=== PATIENT | male | born 1980 | race Two or more races ===

== ENCOUNTER 2021-01-27 09:31 | Emergency (ER) | payer MEDICAID ==
[~2021-01-27] VITALS: Ht 190.5 cm; Wt 204.1 kg
[2021-01-27 09:50] VITALS: BP 140/83
--- NOTE | 2021-01-27 09:54 | NUR ---
pt arrives to ER with complaints of right leg swelling. pt was sent from primary care physican to r/o DVT. pt states swelling intermittently over one year. pt states recent pain and discomfort with right lower extremity. pt denies any trauma or histor of DVT.
--- NOTE | 2021-01-27 10:00 | Emergency Room Report ---
History of Present Illness General Chief Complaint: Lower Extremity Injury Source: Patient Present Illness HPI Patient is a 40-year-old male presents for increased right-sided leg pain and swelling. Gradual onset of symptoms over the past several weeks. He contacted his physician who recommended he get evaluated for possible blood clots. Patient denies any prior history of blood clots in the past. Prior history of obesity. He additionally states that he has had sleep apnea and uses CPAP. Patient does not take any medications regularly. No vomiting or diarrhea. Denies any chest pain or shortness of breath. No prior history of thyroid disease. Allergies: Uncoded Allergies: PENICILLIN (Allergy, Unknown, 01/27/21) COVID-19 Screening Contact w/high risk pt: No Experienced COVID-19 symptoms?: No COVID-19 Testing performed [employer]: No COVID-19 Screening: Negative COVID-19 Patient History Past Medical History: see triage record Reviewed Nursing Documentation: PMH: Agreed; PSxH: Agreed Nursing Documentation-PMH Hx Cardiac Problems: No Hx Hypertension: No Hx Pacemaker: No Hx Asthma: No Hx COPD: No Hx Diabetes: No Hx Cancer: No Hx Gastrointestinal Problems: No Hx Dialysis: No History Of Psychiatric Problem: No Hx Neurological Problems: No Hx Cerebrovascular Accident: No Hx Seizures: No Review of Systems All Other Systems: negative except mentioned in HPI Physical Exam Vital Signs Date Time Temp Pulse Resp B/P (MAP) Pulse Ox O2 Delivery O2 Flow Rate FiO2 01/27/21 09:50 98.2 88 18 140/83 (102) 96 Room Air Sp02 EP Interpretation: reviewed, normal General Appearance: normal inspection, well appearing, alert, GCS 15, obese Head: atraumatic ENT: normal ENT inspection, hearing grossly normal, normal voice Neck: normal inspection, full range of motion, supple, no bony tend Respiratory: normal inspection, lungs clear, normal breath sounds, no respiratory distress, no retraction, no wheezing Cardiovascular #1: regular rate, rhythm, no edema Gastrointestinal: normal inspection, normal bowel sounds, non tender, soft, no guarding, no hernia Genitourinary: no CVA tenderness Musculoskeletal: normal inspection, back normal, normal range of motion Neurologic: alert, motor strength/tone normal, land classifier III-XII nml as tested, oriented x3, responsive, speech normal, normal inspection Psychiatric: normal inspection, judgement/insight normal, mood/affect normal Skin: other - Venous stasis skin changes and varicosities to the right lower extremity, trace edema Medical Decision Making Diagnostic Impression: Primary Impression: Dependent edema Additional Impression: Varicose veins of lower extremity ER Course Patient presents for right lower extremity swelling. Differential diagnosis include was not limited to cellulitis, venous stasis changes, DVT, congestive heart failure among others. Because of complexity of patient's case laboratory tests and imaging studies were ordered. Patient's laboratory testing was unremarkable. Patient was advised dietary modification and as well as continue use of compression stockings. Is advised to keep his legs elevated when at rest. Patient is duplex ultrasound of lower extremity showed no evidence of DVT. Patient's laboratory testing was unremarkable and he has adequate hemoglobin as well as normal thyroid test. Patient is advised to return if any worsening condition or if any changes in status that are concerning. This report is dictated with [employer] office services assistant software which may occasionally lead to discrepancies related to use of this software. Labs Test 01/27/21 11:20 White Blood Count 7.0 K/UL (4.8-10.8) Red Blood Count 5.13 M/UL (4.70-6.10) Hemoglobin 13.7 G/DL (14.2-18.0) Hematocrit 43.6 % (42.0-52.0) Mean Corpuscular Volume 85 FL (80-99) Mean Corpuscular Hemoglobin 26.7 PG (27.0-31.0) Mean Corpuscular Hemoglobin Concent 31.5 G/DL (32.0-36.0) Red Cell Distribution Width 15.0 % (11.6-14.8) Platelet Count 160 K/UL (150-450) Mean Platelet Volume 11.3 FL (6.5-10.1) Neutrophils (%) (Auto) 61.9 % (45.0-75.0) Lymphocytes (%) (Auto) 29.0 % (20.0-45.0) Monocytes (%) (Auto) 6.6 % (1.0-10.0) Eosinophils (%) (Auto) 1.7 % (0.0-3.0) Basophils (%) (Auto) 0.8 % (0.0-2.0) Sodium Level 143 MMOL/L (136-145) Potassium Level 4.1 MMOL/L (3.5-5.1) Chloride Level 107 MMOL/L (98-107) Carbon Dioxide Level 27 MMOL/L (21-32) Anion Gap 9 mmol/L (5-15) Blood Urea Nitrogen 19 mg/dL (7-18) Creatinine 0.9 MG/DL (0.55-1.30) Estimat Glomerular Filtration Rate > 60 mL/min (>60) Glucose Level 104 MG/DL (74-106) Calcium Level 9.0 MG/DL (8.5-10.1) Total Bilirubin 0.5 MG/DL (0.2-1.0) Aspartate Amino Transf (AST/SGOT) 18 U/L (15-37) Alanine Aminotransferase (ALT/SGPT) 50 U/L (12-78) Alkaline Phosphatase 75 U/L (46-116) Pro-B-Type Natriuretic Peptide 9 pg/mL (0-125) Total Protein 6.9 G/DL (6.4-8.2) Albumin 3.1 G/DL (3.4-5.0) Globulin 3.8 g/dL Albumin/Globulin Ratio 0.8 (1.0-2.7) Thyroid Stimulating Hormone (TSH) 2.659 uiU/mL (0.358-3.740) Last Vital Signs Date Time Temp Pulse Resp B/P (MAP) Pulse Ox O2 Delivery O2 Flow Rate FiO2 01/27/21 09:50 98.2 88 18 140/83 (102) 96 Room Air Status: improved Disposition: HOME, SELF-CARE Condition: Stable Referrals: [facility],REFERR[facility] (PCP) Armando Prado MD Jan 27, 2021 10:00
[2021-01-27 11:31] LABS: BASOPHILS % (AUTO) 0.8 % (0.0-2.0); EOSINOPHILS % (AUTO) 1.7 % (0.0-3.0); HEMATOCRIT 43.6 % (42.0-52.0); HEMOGLOBIN 13.7 G/DL (14.2-18.0); MEAN CORPUSCULAR VOLUME 85 FL (80-99); MONOCYTES % (AUTO) 6.6 % (1.0-10.0); NEUTROPHILS % (AUTO) 61.9 % (45.0-75.0); PLATELET COUNT 160 K/UL (150-450); RED BLOOD COUNT 5.13 M/UL (4.70-6.10)
[2021-01-27 11:38] LABS: ANION GAP 9 mmol/L (5-15); BLOOD UREA NITROGEN 19 mg/dL (7-18); CARBON DIOXIDE 27 MMOL/L (21-32); CHLORIDE 107 MMOL/L (98-107); CREATININE 0.9 MG/DL (0.55-1.30); POTASSIUM 4.1 MMOL/L (3.5-5.1); SODIUM 143 MMOL/L (136-145)
[2021-01-27 11:53] LABS: ALANINE AMINOTRANSFERASE 50 U/L (12-78); ALBUMIN 3.1 G/DL (3.4-5.0); ALBUMIN/GLOBULIN RATIO 0.8 (1.0-2.7); ALKALINE PHOSPHATASE 75 U/L (46-116); ASPARTATE AMINO TRANSFERASE 18 U/L (15-37); BILIRUBIN,TOTAL 0.5 MG/DL (0.2-1.0)
--- NOTE | 2021-01-27 17:32 | Diagnostic Imaging Report ---
Indication: Increased right-sided leg pain and swelling Technique: Grayscale and duplex images of the right lower extremity veins Comparison: In Findings: On the right, grayscale and duplex images demonstrate no evidence of intraluminal thrombus. Normal phasic Doppler waveforms, demonstrating normal augmentation response and no evidence of valvular insufficiency. Greater saphenous vein(s) and tibial veins are patent. Normal compressibility. The left common femoral vein was also imaged and is patent Impression: Negative for evidence of lower extremity deep venous thrombosis on the right
== END 2021-01-27 12:10 | disposition home or self-care (01) ==
LOC: EMR 09:59
DX: I83.93 Asymptomatic varicose veins of bilateral lower extremities (principal); R60.0 Localized edema; G47.30 Sleep apnea, unspecified; Z88.0 Allergy status to penicillin; E66.9 Obesity, unspecified
CPT/HCPCS: 36415; 80053; 83880; 84443; 85025; 93971; Z7502; 99284